=== PATIENT | male | born 2000 | race Two or more races ===

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

== ENCOUNTER 2021-04-13 12:45 | Emergency (ER) | payer OTHER, SELFPAY ==
--- NOTE | ~2021-04-13 | XR_ITS ---
EXAMINATION: XR KNEE, RIGHT CLINICAL INFORMATION: Right knee crush injury. Rule out fracture. COMPARISON: None TECHNIQUE: Four views of the right knee. FINDINGS: Bones and soft tissues are normal. No fracture or joint effusion. Alignment is anatomic. Joint spaces are well maintained. No abnormal soft tissue calcification. XR/XR knee RT 4V IMPRESSION: Unremarkable right knee exam.
--- NOTE | ~2021-04-13 | CT_ITS ---
Preliminary report by Dr. Styles: Raw data examined, 3-D processing images not available yet. There is proper enhancement of the aorta, iliac, femoral, superficial femoral, popliteal, below the knee three-vessel anterior tibial posterior tibial and common peroneal are properly enhancing proximally, distally the vessels are very small and difficult to accurately evaluate. No abrupt obstruction of large artery. STUDY PERFORMED: CTA ABDOMEN, PELVIS AND LOWER EXTREMITY RUNOFF WITH CONTRAST INTERPRETING VASCULAR AND INTERVENTIONAL RADIOLOGIST: Almita Beaver M.D., Ph.D. HISTORY: Concern for arterial injury COMPARISON: CT abdomen pelvis 01/05/2017 TECHNIQUE: Routine abdominal aorta and lower extremity runoff CTA protocol with contrast was performed. 80 mL of Omnipaque 350 was administered. Images were evaluated on independent dedicated 3-D workstation and 3-D images were reconstructed with concurrent radiologist supervision and subsequently interpreted. This CT examination was performed using dose optimization techniques as appropriate, variously including the following: *Automated exposure control *Adjustment of mA and/or kV according to patient size (this includes techniques or standardized protocols for targeted exams where dose is matched to indication/reason for exam; i.e. extremities or head) *Use of iterative reconstruction technique TOTAL DLP: 1006 mGy-cm FINDINGS: Vascular: The infrarenal abdominal aorta, common iliac arteries, internal iliac arteries, external iliac arteries, common femoral arteries, profunda arteries, superficial femoral arteries and popliteal arteries are patent without evidence of aneurysm, dissection or stenosis. Distal to the popliteal artery, the runoff vessels are poorly opacified with contrast and patency cannot be assessed. NONVASCULAR: Very limited assessment of the lower abdominal and pelvic organs due to patient body habitus. The visualized portions of the kidneys, bowel, bladder, prostate and seminal vesicles are unremarkable. No free fluid within the abdomen or pelvis. No lymphadenopathy. No acute or suspicious osseous abnormality. CT/CT angio LE RT IMPRESSION: From the level of the infrarenal abdominal aorta to the popliteal arteries, there are no vascular abnormalities seen. The contrast bolus distal to the popliteal arteries is weak and does not allow for assessment of the tibial or peroneal vessels.
[2021-04-13 13:30] VITALS: BP 135/79; PULSE 95; RESP 18; TEMP 36.8; O2SAT 97; BMI 49.3
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
[2021-04-13] MEDS: Ibuprofen 600 MG TABLET PO (14:23)
[2021-04-13 14:50] LABS: MANUAL DIFF FLAG NO
[2021-04-13 14:52] LABS: Basophils Percent Auto 0.2 % (0-2); Eosinophils Absolute Auto 0.1 X10*3/uL (0.0-0.4); Eosinophils Percent Auto 0.7 % (0-4); Hemoglobin 14.2 g/dl (14.0-18.0); Imm Gran Abs Auto 0.03 X10*3/uL (0.00-0.03); Imm Gran Pct Auto 0.4 % (0.0-0.4); Lymphocytes Absolute Auto 1.6 X10*3/uL (1.2-4.9); Lymphocytes Percent Auto 18.4 % (20-40); Mean Corpuscular HGB Conc 33.8 g/dl (31.0-36.0); Mean Corpuscular Hemoglobin 29.6 pg (27.0-33.0); Mean Corpuscular Volume 87.7 fL (80-98); Mean Platelet Volume 10.7 fL (9.4-12.4); Monocytes Absolute Auto 0.7 X10*3/uL (0.1-1.2); Monocytes Percent Auto 7.7 % (2-11); Neutrophils Absolute Auto 6.2 X10*3/uL (2.0-8.3); Neutrophils Percent Auto 72.6 % (45-73); Platelet Count 236 X10*3/uL (160-400); Red Blood Count 4.79 X10*6/uL (4.60-5.80); Red Cell Distribution Width 12.9 % (11.0-16.0); White Blood Count 8.5 X10*3/uL (4.8-10.8)
[2021-04-13 15:09] LABS: Lactic Acid 0.9 mmol/L (0.5-2.0)
[2021-04-13 15:09] LABS: INTERNATIONAL NORM RATIO 1.2 (0.9-1.1); Prothrombin Time 14.3 SEC (10.8-13.0)
[2021-04-13 15:12] LABS: Partial Thromboplastin Time 40.3 SEC (24.1-38.0)
[2021-04-13 15:14] LABS: Alanine Aminotransferase 53 U/L (0-40); Albumin Level 4.3 g/dL (3.5-5.0); Alkaline Phosphatase 51 U/L (39-117); Anion Gap 13 (12-20); Aspartate Amino Transferase 27 U/L (5-37); Blood Urea Nitrogen 12 mg/dL (9-16); Calcium 9.5 mg/dL (8.4-10.2); Carbon Dioxide 27 mmol/L (22-29); Chloride 103 mmol/L (96-108); Creatinine Clr Calc Pharmacy 289.8; Estimated Glomerular Filt Rate > 60; Glucose Random 87 mg/dL (60-115); Potassium 3.9 mmol/L (3.3-5.1); Sodium 139 mmol/L (135-145); Total Protein 7.3 g/dL (6.5-8.0)
[2021-04-13] MEDS: iohexoL 350 MG/ML 100 ML INFUS..BTL IV (15:47)
[2021-04-13] MEDS: ondansetron HCL 4 MG/2 ML VIAL IVPUSH (16:01)
[2021-04-13] MEDS: Morphine Sulfate 4 MG/ML CARTRIDGE IVPUSH (16:03)
[2021-04-13 16:13] VITALS: BP 143/65; PULSE 84; RESP 16; TEMP 36.7; O2SAT 97
[2021-04-13] MEDS: Ketorolac Tromethamine 30 MG/ML VIAL IVPUSH (20:25)
== END 2021-04-13 20:53 | disposition home or self-care (01) ==
PROVIDERS: Emergency Medicine Emergency Medical Services; Emergency Provider Emergency Medicine; PCP Pediatrics
DX: M25.461 Effusion, right knee (principal); S87.01XA Crushing injury of right knee, initial encounter; V91 Other injury due to accident to watercraft; M25.561 Pain in right knee; I10 Essential (primary) hypertension; Y93.19 Activity, other involving water and watercraft; Y92.89 Other specified places as the place of occurrence of the external cause; Y99.8 Other external cause status
CPT/HCPCS: 36415; 73564; 73706; 80053; 83605; 85025; 85610; 85730; 96374; 96375; 99284; J1885; J2270; J2405; Q9967

== ENCOUNTER → 2021-04-18 13:17 | Outpatient (BNVA) | payer OTHER, SELFPAY | PROVIDERS: Visit Provider Physician Assistant | DX: S87 Crushing injury of lower leg (principal); M25.461 Effusion, right knee | CPT/HCPCS: J1040 ==

== ENCOUNTER 2021-07-07 22:47 | Emergency (ER) | payer OTHER, SELFPAY ==
[2021-07-07 22:49] VITALS: BP 142/88; PULSE 113; RESP 15; TEMP 36.6; O2SAT 98; BMI 47.5
--- NOTE | 2021-07-07 23:39 | ED.SKABFB ---
HPI - Skin/Abscess/Foreign Bdy General Chief complaint: Skin/Abscess/Foreign Body Stated complaint: Abscess Time Seen by Provider: 07/08/21 00:10 Source: patient Mode of arrival: ambulatory Limitations: no limitations History of Present Illness HPI narrative: 21-year-old male presents with multiple abscesses to his groin and thigh for approximately 4 days. Has a history of hidradenitis suppurativa. He does not report any fevers or chills, and denies any other symptoms. MD complaint: abscess/boil Onset (ago): day(s) (4) Location: genitals (Groin) Severity: moderate Severity scale (1-10): 7 Quality: burning and aching Pain Consistency: constant Relieving factors: none Exacerbating factors: palpation and movement Context: none Associated symptoms: denies other symptoms Treatments prior to arrival: attempted to drain pus at home Related Data Home Medications Medication Instructions Recorded Confirmed cholecalciferol (vitamin D3) 50 50 mcg PO DAILY 04/18/21 mcg (2,000 unit) capsule fluticasone propionate 110 2 puff PO BID 04/18/21 mcg/actuation HFA aerosol inhaler losartan 50 mg tablet 50 mg PO DAILY 04/18/21 Previous Rx's Medication Instructions Recorded cyclobenzaprine 10 mg tablet 10 mg PO TID PRN #10 tab 10/03/20 lidocaine 5 % topical patch 1 patch TOPICAL DAILY #15 ea 10/03/20 (Lidoderm) naproxen 500 mg tablet 500 mg PO BID PRN #20 tab 10/03/20 acetaminophen 650 mg 650 mg PO Q12H PRN #14 tab 04/13/21 tablet,extended release (Tylenol 8 Hour) amoxicillin 875 mg-potassium 1 tab PO Q12H 10 Days #20 tab 07/07/21 clavulanate 125 mg tablet (Augmentin) sulfamethoxazole 800 1 tab PO Q12H 10 Days #20 tab 07/07/21 mg-trimethoprim 160 mg tablet (Bactrim DS) Allergies Allergy/AdvReac Type Severity Reaction Status Date / Time No Known Allergies Allergy Verified 04/18/21 13:21 Review of Systems Review of Systems: Constitutional: No Fever, No Chills ENT/Mouth: No Ear Pain, No Hoarseness, No sore throat Eyes: No Eye Pain, No Swelling, No Redness, No Foreign Body Cardiovascular: No Chest Pain, No SOB Respiratory: No Cough, No Dyspnea Gastrointestinal: No Nausea, No Vomiting, No Diarrhea, No abdominal Pain Genitourinary: No Dysuria, No Hematuria Musculoskeletal: No joint pain, No Myalgias, No Joint Swelling Skin: Positive abscesses to his groin bilaterally, No Skin lacerations, No rash Neuro: No Weakness, No Numbness, No Paresthesias, No Loss of Consciousness, No Dizziness, No Headache Psych: No Anxiety/Panic, No Depression Heme/Lymph: no easy bruising, no Lymphadenopathy Endocrine: No Polyuria, No Polydipsia Yes all other systems are reviewed and are negative [facility] Past Medical History Attestation statement: The following information was validated with the patient. Source: old records reviewed Medical History Anxiety Asthma Depression HTN (hypertension) Hx of fracture of arm Kidney stones Surgical History History of surgery of head Social History Social History Alcohol intake: current Alcohol intake frequency: a few times a month Advance Directives: No Current occupation: RT handed Physical Exam Vital Signs: Vital Signs: Last Vital Signs Temp 97.9 F 07/07/21 22:49 Pulse 113 H 07/07/21 22:49 Resp 15 07/07/21 22:49 BP 142/88 H 07/07/21 22:49 Pulse Ox 98 07/07/21 22:49 Body Mass Index 47.5 Appearance: Alert. Oriented X3. No acute distress. Eyes: Pupils equal, round and reactive to light. ENT: Pharynx normal. Neck: Normal inspection. Neck supple. CVS: Normal heart rate and rhythm. Pulses normal. Respiratory: No respiratory distress. Breath sounds normal. Abdomen: Soft and nontender. Skin: Abscess to right testicle, abscess to left groin, Skin warm and dry. Normal skin color. Normal skin turgor. Extremities: No lower extremity edema. Gait well balanced well coordinated. Neuro: No motor deficit. No sensory deficit. Cranial nerves 2-12 intact. Course Course Course Narrative: 21-year-old male presents with abscess to left groin and right testicle. Has a history of recurrent abscesses consistent with hidradenitis suppurativa. Abscess to the left groin prepped and draped in sterile fashion, incised with 11 blade approximately 0.5 cm, packed with 6 in of iodoform dressing. Approximately 30 mL of purulent drainage from the site. Approximately 6 mL of lidocaine used. Culture obtained. Second abscess to the right testicle, approximately 2 mL of lidocaine used for anesthesia, 5 mL of purulent fluid drained from right testicle. Incision 0.5 cm, no packing required at this time. Patient is afebrile, nontoxic. vital signs within normal limits initial triage heart rate 113, repeat heart rate 82. No indication of sepsis. Patient does understand that he must complete entire course of antibiotics. Patient spends copious amounts of time outdoors for his job requirement. Will treat with Bactrim and Augmentin versus doxycycline. Patient tolerated procedure well. Patient verbalized understanding of and agrees to plan of care discharge home. MDM - Skin/Abscess/Foreign Bdy MDM Narrative Medical decision making narrative: Hidradenitis suppurativa Differential Diagnosis Differential diagnosis: Likely abscess of skin or subcutaneous tissue and cellulitis Medical Records Attestation: I reviewed the patient's medical records. Procedures Abscess I/D Site: scrotum and lower extremity Side (if applicable): right Local Anesthetic: lidocaine 2% Amount of anesthesia used (mL): 8 Technique: incised with blade Amount of fluid expressed (mL): 35 Sent for culture/gram staining?: No Irrigation: No Packing used?: none Discharge Plan Discharge Clinical Impression: Cellulitis, Abscess of skin or subcutaneous tissue Patient Disposition: Home, Self-Care Instructions: Cellulitis (ED), Abscess (ED), Abscess Follow-up (ED), Abscess Incision and Drainage (DC), Incision and Drainage (ED) Additional Instructions: You were evaluated for abscess to the left groin and right testicle. We drained both of these abscesses. Please take Bactrim and Augmentin twice a day for the next 10 days. Please return in 3 days for packing removal and wound check. If you develop any signs or symptoms indicating infection such as but not limited to fevers, chills, nausea, vomiting, or increasing pain and swelling to the incision and drainage site please return to the emergency department immediately. These are signs of sepsis. Thank you for choosing this emergency department for evaluation. Please follow-up with primary care physician as needed. Return to the emergency department for any new, concerning, or worsening symptoms. Prescriptions: New sulfamethoxazole-trimethoprim [Bactrim DS] 800-160 mg tablet 1 tab PO Q12H 10 Days Qty: 20 RF: 0 amoxicillin-pot clavulanate [Augmentin] 875-125 mg tablet 1 tab PO Q12H 10 Days Qty: 20 RF: 0 No Action acetaminophen [Tylenol 8 Hour] 650 mg tablet extended release 650 mg PO Q12H PRN (Reason: pain) Qty: 14 RF: 0 cyclobenzaprine 10 mg tablet 10 mg PO TID PRN (Reason: muscle spasm) Qty: 10 RF: 0 lidocaine [Lidoderm] 5 % adhesive patch,medicated 1 patch topical DAILY Qty: 15 RF: 0 naproxen 500 mg tablet 500 mg PO BID PRN (Reason: pain) Qty: 20 RF: 0 Flovent HFA 110 mcg/actuation HFA aerosol inhaler 2 puff PO BID RF: 0 cholecalciferol (vitamin D3) 50 mcg (2,000 unit) capsule 50 mcg PO DAILY RF: 0 losartan 50 mg tablet 50 mg PO DAILY RF: 0
[2021-07-08] MEDS: Lidocaine HCl 2 % MPF 5 ML VIAL 10 ML SUBCUT (00:04)
[2021-07-08] MEDS: Amoxicillin/Potassium Clav 875 MG TABLET PO (00:04)
[2021-07-08] MEDS: Diphth,Pertus(ACell),Tet Adult 0.5 ML SYRINGE IM (00:46)
[2021-07-08] MEDS: Ibuprofen 800 MG TABLET PO (01:08)
== END 2021-07-08 01:12 | disposition home or self-care (01) ==
PROVIDERS: Emergency Provider Internal Medicine; PCP Pediatrics
DX: N45.4 Abscess of epididymis or testis (principal); L02.416 Cutaneous abscess of left lower limb; L02.415 Cutaneous abscess of right lower limb; Z79.899 Other long term (current) drug therapy
CPT/HCPCS: 10060; 55100; 87071; 87077; 87186; 87205; 90471; 90715; 99284

== ENCOUNTER 2021-08-10 13:09 | Emergency (ER) | payer OTHER, SELFPAY ==
[2021-08-10 13:49] VITALS: BP 138/69; PULSE 98; RESP 18; TEMP 36.8; O2SAT 97; BMI 49.4
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
== END 2021-08-10 15:11 | disposition home or self-care (01) ==
PROVIDERS: Emergency Provider Internal Medicine; PCP Pediatrics
DX: M79.604 Pain in right leg (principal); Z79.899 Other long term (current) drug therapy
CPT/HCPCS: 99283

== ENCOUNTER 2021-08-26 07:52 | Outpatient (REF) | payer OTHER, SELFPAY ==
--- NOTE | ~2021-08-26 | XR_ITS ---
EXAMINATION: XR KNEE, RIGHT CLINICAL INFORMATION: Pain COMPARISON: Right knee x-ray April 2021 and left knee x-ray April 2017 TECHNIQUE: Standing AP view of both knees and sunrise view of the right knee. FINDINGS: Right: Bone alignment is normal. No fracture or dislocation is seen. The joint spaces are normal. The soft tissues are normal. Standing AP view of the left knee is unremarkable. XR/XR knee RT 2V IMPRESSION: Unremarkable exam.
== END 2021-08-26 07:53 | disposition home or self-care (01) ==
LOC: HO.HOSX 07:52
PROVIDERS: Visit Provider Physician Assistant
DX: S87 Crushing injury of lower leg (principal)
CPT/HCPCS: 73560; 99212

== ENCOUNTER → 2023-01-27 15:47 | Outpatient (BNVA) | payer OTHER, SELFPAY | PROVIDERS: PCP Pediatrics; Visit Provider Physician Assistant Surgical ==

== ENCOUNTER → 2023-02-16 16:00 | Outpatient (BNVA) | payer OTHER, SELFPAY | PROVIDERS: PCP Pediatrics; Visit Provider Physician Assistant Surgical | DX: E66.01 Morbid (severe) obesity due to excess calories (principal); Z68.43 Body mass index [BMI] 50.0-59.9, adult | CPT/HCPCS: 99202 ==

== ENCOUNTER 2023-03-03 10:29 | Outpatient (REF) | payer MEDICAID, SELFPAY ==
--- NOTE | ~2023-03-03 | XR_ITS ---
EXAMINATION: XR CHEST CLINICAL INFORMATION: Obesity COMPARISON: Previous exam September 2020 TECHNIQUE: 2 views of the chest were obtained. FINDINGS: No significant abnormality is noted involving the heart, lungs, mediastinum, bony thorax or soft tissues. XR/XR chest 2V IMPRESSION: Unremarkable examination.
--- NOTE | 2023-03-03 10:43 | ECG_ITS ---
Test Reason : e66.09 Blood Pressure : / mmHG Vent. Rate : 064 BPM Atrial Rate : 064 BPM P-R Int : 156 ms QRS Dur : 088 ms QT Int : 384 ms P-R-T Axes : 040 027 012 degrees QTc Int : 396 ms Sinus rhythm with marked sinus arrhythmia Otherwise normal ECG When compared with ECG of 25-DEC-2016 00:00, No significant changes seen Referred By: Gene Guerrero Electronically Signed By:Josias Chamorro
[2023-03-03 10:52] LABS: MANUAL DIFF FLAG NO
[2023-03-03 11:25] LABS: Basophils Percent Auto 0.3 % (0-2); Eosinophils Absolute Auto 0.3 X10*3/uL (0.0-0.4); Eosinophils Percent Auto 4.7 % (0-4); Hematocrit 45.1 % (42.0-52.0); Hemoglobin 14.9 g/dl (14.0-18.0); Imm Gran Abs Auto 0.02 X10*3/uL (0.00-0.03); Imm Gran Pct Auto 0.3 % (0.0-0.4); Lymphocytes Absolute Auto 1.6 X10*3/uL (1.2-4.9); Lymphocytes Percent Auto 23.8 % (20-40); Mean Corpuscular Hemoglobin 28.5 pg (27.0-33.0); Mean Corpuscular Volume 86.4 fL (80.0-98.0); Monocytes Absolute Auto 0.5 X10*3/uL (0.1-1.2); Monocytes Percent Auto 7.9 % (2-11); Neutrophils Absolute Auto 4.3 x10*3/uL (2.0-8.3); Platelet Count 235 X10*3/uL (160-400); Red Blood Count 5.22 X10*6/uL (4.60-5.80); Red Cell Distribution Width 13.2 % (11.0-16.0); White Blood Count 6.9 X10*3/uL (4.8-10.8)
[2023-03-03 11:28] LABS: Estimated Average Glucose 108 mg/dL; Hemoglobin A1c % 5.4 %
[2023-03-03 12:13] LABS: Alanine Aminotransferase 45 U/L (0-40); Albumin Level 4.1 g/dL (3.5-5.0); Alkaline Phosphatase 51 U/L (39-117); Anion Gap 12 (12-20); Aspartate Amino Transferase 20 U/L (5-37); Bilirubin Total 0.8 mg/dL (0.0-1.0); Blood Urea Nitrogen 13 mg/dL (9-16); C Reactive Protein 1.07 mg/dL (< or = 0.50); Calcium 9.3 mg/dL (8.4-10.2); Carbon Dioxide 27 mmol/L (22-29); Chloride 104 mmol/L (96-108); Cholesterol 231 mg/dL; Estimated Glomerular Filt Rate > 60; Glucose Random 99 mg/dL (60-115); HDL Cholesterol 42 mg/dL; Iron 86 mcg/dL (45-160); LDL Cholesterol Calculated 169 mg/dl; Percent Iron Saturation 38 % (15-50); Potassium 4.2 mmol/L (3.3-5.1); Sodium 139 mmol/L (135-145); Total Iron Binding Capacity 225 mcg/dL (228-428); Triglycerides 100 mg/dL; Unsaturated Iron Binding 139 ug/dL
[2023-03-03 12:45] LABS: Ferritin 220 ng/mL (20-250); Folate 6.8 ng/mL (> or = 4.0); Insulin 24 uU/mL (2-29); TSH reflex Free T4 1.22 uIU/mL (0.32-4.0); Vitamin B12 482 pg/mL (200-900); Vitamin D 25-OH Total 11.8 ng/mL (>30)
[2023-03-05 14:08] LABS: Calcium (PTHI) 9.3 mg/dL (8.6-10.3); PTHI 44 pg/mL (16-77)
[2023-03-08 15:33] LABS: Zinc 78 mcg/dL (60-130)
[2023-03-10 13:49] LABS: Vitamin A 32 mcg/dL (38-98)
[2023-03-11 16:44] LABS: Vitamin B1 11 nmol/L (8-30)
== END 2023-03-03 10:30 | disposition home or self-care (01) ==
LOC: HO.LAB 10:29
PROVIDERS: PCP Pediatrics; Visit Provider Physician Assistant Surgical
DX: E66.01 Morbid (severe) obesity due to excess calories (principal); I10 Essential (primary) hypertension
CPT/HCPCS: 36415; 71046; 80053; 80061; 82306; 82607; 82728; 82746; 83036; 83525; 83540; 83970; 84425; 84443; 84590; 84630; 85025; 86140; 93005

== ENCOUNTER → 2023-03-08 09:46 | Outpatient (BNVA) | payer MEDICAID, SELFPAY | PROVIDERS: PCP Pediatrics; Visit Provider Physician Assistant Surgical ==